=== PATIENT | male | born 2005 | race Two or more races ===

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

== ENCOUNTER 2025-03-12 14:15 | Emergency (ER) | payer MEDICAID ==
[~2025-03-12] VITALS: Ht 170.2 cm; Wt 81.0 kg
--- NOTE | 2025-03-12 15:36 | Physician Documentation ---
HPI ~ General Chief Complaint: Medication Request Stated Complaint: MED REQUEST Time Seen by MD: 14:41 Primary Medical Doctor: Marlee History of Present Illness HPI Comments Needs multi Rx for admission to program. Known PmHx IDDM. Recently relocated from [place] to [facility]. No polydipsia, polyphagia or polyuria. Reports well-controlled when on his medications. Medication Reconciliation Allergies: Coded Allergies: No Known Allergies (Unverified , 04/18/14) Scheduled Divalproex Sodium (Depakote), 1,000 MG PO QAM, (Reported) Guanfacine HCl (Tenex), 1 TABLET PO QID, (Reported) Melatonin/Pyridoxine Hcl (B6) (Melatonin 5 Mg Tablet), 2 EACH PO HS, (Reported) Methylphenidate HCl (Concerta), 1 TABLET PO QAM, (Reported) Quetiapine Fumarate (Seroquel), 50 MG PO QAM, (Reported) Quetiapine Fumarate (Quetiapine Fumarate), 300 MG PO HS, (Reported) Quetiapine Fumarate (Seroquel), 2 TABLET PO DAILY AT 1630, (Reported) Past Medical History Past Medical History: Diabetes, *PSYCH*, Bipolar Past Surgical History: no surgical history Other Past Family History: NONE Alcohol Use: None Drug Use: none Lives with: Family Lives In: Home Review of Systems All Other Systems at this time: Reviewed and Negative ROS See HPI Physical Exam Physical Exam Vital Signs: RN Vital Signs have been reviewed: Yes, Temperature: 97.8, Source: Temporal, Heart Rate: 93, Respiratory Rate: 16, BP: 134/65, Pulse Oximetry: 96, Weight: 81.000 Oxygen Flow Rate: 0 General Appearance: alert, WD/WN, no apparent distress Pupils/EOM/Fundus: PERRLA Neck: non-tender Respiratory: no respiratory distress Chest: no accessory muscle use Extremities: normal inspection Neurologic: oriented x4 Motor / Sensory: no motor deficit Affect: appropriate Skin: warm/dry Progress Results/Orders Results/Orders Vital Signs 03/12/25 14:17 Temp 97.8 Pulse 93 Resp 16 B/P (MAP) 134/65 Pulse Ox 96 O2 Flow Rate 0 Medical Decision Making Additional information obtaine: other (Pharmacist) Findings 19-year-old male with a medication prescription refills. While in the emergency department we contacted his preferred pharmacy in [place] and had prescriptions aligned with pharmacy in [place]. Patient has a pending admission to his program and we will obtain his prescriptions for pharmacy with the next hour to. Safely discharged in the emergency department. Differential Dx:Considerations: Include: Adverse circumstances, Economic, Psychosocial, Medical services unavail., Medication refill, Medication non-compliance Departure Disposition: HOME / SELF CARE / HOMELESS Impression: Primary Impression: Prescription refill Additional Impression: Diabetes Qualified Codes: E10.69 - Type 1 diabetes mellitus with other specified complication Condition: Stable Discharge Instructions: Medicine Refill at the Emergency Department Additional Instructions: Please obtain your prescriptions and follow up with the Pharmacy for refills as needed. Referrals: NO PRIMARY CARE PROVIDER (PCP) Education Educated: Patient Educated regarding: diagnosis, treatment, prognosis, need for follow up Signature Scribe Signature: . Attestation: . PAZ BOND PAC Mar 12, 2025 15:36
[2025-03-12 15:52] VITALS: BP 145/87; PULSE 87; RESP 17; TEMP 97.8; O2SAT 98
== END 2025-03-12 15:54 | disposition home or self-care (01) ==
LOC: ER 14:16
DX: E11.9 Type 2 diabetes mellitus without complications (principal); F31.9 Bipolar disorder, unspecified; Z76.0 Encounter for issue of repeat prescription; Z79.4 Long term (current) use of insulin; Z79.899 Other long term (current) drug therapy
CPT/HCPCS: 99282

== ENCOUNTER 2025-03-24 13:54 | Emergency (ER) | payer MEDICAID ==
[~2025-03-24] VITALS: Ht 167.6 cm; Wt 79.3 kg
--- NOTE | 2025-03-24 14:33 | Physician Documentation ---
History of Present Illness ~ Chief Complaint: Cold, cough & congestion Stated Complaint: LOW 02 Time Seen by MD: 16:16 Primary Medical Doctor: Marlee Source: patient Mode of Arrival: POV Exam Limitations: no limitations HPI 19-year-old with history of type 2 diabetes coming in with chest congestion mild cough for 24 hours. Patient states his oxygen saturation as low and he is having a difficult time breathing. Patient takes metformin for type 2 diabetes. Patient also states that his blood sugar was in the 400s today. Medication Reconciliation Allergies: Coded Allergies: No Known Allergies (Unverified , 03/24/25) Scheduled Divalproex Sodium (Depakote), 1,000 MG PO QAM, (Reported) Guanfacine HCl (Tenex), 1 TABLET PO QID, (Reported) Melatonin/Pyridoxine Hcl (B6) (Melatonin 5 Mg Tablet), 2 EACH PO HS, (Reported) Methylphenidate HCl (Concerta), 1 TABLET PO QAM, (Reported) Quetiapine Fumarate (Seroquel), 50 MG PO QAM, (Reported) Quetiapine Fumarate (Quetiapine Fumarate), 300 MG PO HS, (Reported) Quetiapine Fumarate (Seroquel), 2 TABLET PO DAILY AT 1630, (Reported) Past Medical History Past Medical History: Diabetes, *PSYCH*, Bipolar Past Surgical History: no surgical history Other Past Family History: NONE Alcohol Use: None Drug Use: none Lives with: Family Lives In: Home Review of Systems All Other Systems at this time: Reviewed and Negative Respiratory: Reports: see HPI Physical Exam Vital Signs: RN Vital Signs have been reviewed: Yes, Temperature: 99.2, Source: Oral, Heart Rate: 128, Respiratory Rate: 18, BP: 140/77, Pulse Oximetry: 95, Weight: 79.300 Oxygen Flow Rate: 0 Physical Exam General: Alert, no apparent distress. HEENT: moist mucous membranes. Neck: Full range of motion. Respiratory: No respiratory distress speaking in full sentences clear to auscultation but diminished in the posterior bases Chest: No accessory muscle use. Cardiovascular: Appears well perfused Neurologic: Oriented x4. Psychiatric: Normal mood and affect. Skin: Normal color, warm and dry. No edema, no ecchymosis. Progress Results/Orders Results/Orders Orders - CIERRA VILLARREAL NP Azithromycin Tablet (Zithromax Tablet) (03/24/25 16:40) Vital Signs 03/24/25 03/24/25 14:08 16:20 Temp 99.2 Pulse 128 Resp 18 18 B/P (MAP) 140/77 Pulse Ox 95 O2 Flow Rate 0 Laboratory Tests Test 03/24/25 14:14 03/24/25 14:24 Glucometer 229 H White Blood Count 13.0 H Red Blood Count 5.22 Hemoglobin 15.1 Hematocrit 45.6 Mean Corpuscular Volume 87.4 Mean Corpuscular Hemoglobin 28.9 Mean Corpuscular Hemoglobin Concent 33.1 Red Cell Distribution Width 13.5 Platelet Count 348 Mean Platelet Volume 8.2 Neutrophils (%) (Auto) 73.8 Lymphocytes (%) (Auto) 13.1 L Monocytes (%) (Auto) 12.8 H Eosinophils (%) (Auto) 0 Basophils (%) (Auto) 0.3 Neutrophils # (Auto) 9.6 H Lymphocytes # (Auto) 1.7 Monocytes # (Auto) 1.7 H Eosinophils # (Auto) 0.0 Basophils # (Auto) 0.0 CBC Comment Sodium Level 138 Potassium Level 3.9 Chloride Level 101 Carbon Dioxide Level 27.7 Anion Gap 9 Blood Urea Nitrogen 10 Creatinine 0.91 Estimated GFR/1.73 m2 > 90 BUN/Creatinine Ratio 11.0 Glucose Level 242 H Calcium Level 9.4 Pro-B-Type Natriuretic Peptide < 30 Albumin 3.7 Chemistry Comments EKG/XRAY/CT/US/VASC/MRI Chest X-Ray : Additional Comments CHEST RADIOGRAPH INDICATION: CP TECHNIQUE: Single frontal view of the chest was obtained COMPARISON: None FINDINGS: Lines and Tubes: None Lungs: Right medial mid to lower lung zone patchy opacity. Pleura: No effusion. No pneumothorax. Cardiomediastinal contours: Unremarkable Bones: No acute osseous abnormality. IMPRESSION: Right medial mid to lower lung zone patchy opacity which may represent pneumonia in the right clinical setting. Medical Decision Making Additional information obtaine: N/A Findings X-ray due to patient's symptoms and subjective hypoxemia. Vital signs reassuring except for heart rate elevation. X-ray does show some consolidation potentially pneumonia. Patient also has uncontrolled type 2 diabetes. Patient will be ultimately discharged with antibiotics for pneumonia as well as a slight increase in his the follow up with primary care Differential Dx:Considerations: Include: Influenza, Pneumonia, Pnuemonitis, Sinusitis, URI, Other Departure Time of Disposition: 16:47 Disposition: 01 HOME / SELF CARE / HOMELESS Impression: Primary Impression: Pneumonia Additional Impression: Diabetes Condition: Stable Discharge Instructions: Upper Respiratory Infection, Adult Referrals: NO PRIMARY CARE PROVIDER (PCP) Prescriptions Guaifenesin (Guaifenesin) 400 Mg Tablet 1 TAB PO Q8H for cough for 5 Days, #15 TAB 0 Refills Prov: CIERRA VILLARREAL NP 03/24/25 Empagliflozin (Jardiance) 25 Mg Tablet 1 TAB PO DAILY for 30 Days, #30 TAB 5 Refills Prov: CIERRA VILLARREAL NP 03/24/25 Azithromycin (Zithromax) 250 Mg Tablet 1 TAB PO UD for 5 Days, #6 TAB 2 the first day followed by 1 for days 2-5 Prov: CIERRA VILLARREAL NP 03/24/25 Education Educated: Patient Educated regarding: diagnosis, treatment, need for follow up Signature Scribe Signature: No scribe Attestation: The note accurately reflects work and decisions made by me.Cierra ROJO 03/24/25 16:52 CIERRA VILLARREAL NP Mar 24, 2025 14:33
[2025-03-24 14:40] LABS: MEAN PLATELET VOLUME 8.2 FL (7.4-10.4); RED CELL DISTRIBUTION WIDTH 13.5 % (11.5-14.5)
--- NOTE | 2025-03-24 14:47 | ELECTROCARDIOGRAPH REPORT ---
[facility] Test Date: 2025-03-24 Test Time: 14:46:02 Pat Name: JEFFERY HOLLINGSWORTH Department: EMERGENCY ROOM Room: Gender: M [employer] Scientist: YASSINE : 2005 Requested By: NICOL DUPREE Order Number: [id number] Reading MD: Dr. Hakan Medina Measurements Intervals [place] Rate: 126 P: 56 UT: 135 QRS: 49 QRSD: 83 T: -4 QT: 277 QTc: 401 Interpretive Statements Sinus tachycardia Borderline T abnormalities, diffuse leads Baseline wander in lead(s) V1,V2,V3,V4,V5,V6 Electronically Signed On 03-25-2025 11:17:[address] Hakan Medina Please click the below link to view image of tracing.
--- NOTE | 2025-03-24 14:51 | RADIOLOGY REPORT ---
CHEST RADIOGRAPH INDICATION: CP TECHNIQUE: Single frontal view of the chest was obtained COMPARISON: None FINDINGS: Lines and Tubes: None Lungs: Right medial mid to lower lung zone patchy opacity. Pleura: No effusion. No pneumothorax. Cardiomediastinal contours: Unremarkable Bones: No acute osseous abnormality. IMPRESSION: Right medial mid to lower lung zone patchy opacity which may represent pneumonia in the right clinical setting.
[2025-03-24 15:03] LABS: CREATININE 0.91 MG/DL (0.60-1.10); PRO BRAIN NATRIURETIC PEPTIDE < 30 PG/ML (0-125); TOTAL CARBON DIOXIDE 27.7 MMOL/L (24-32); eCRCL 116 ML/MIN; eGFR > 90 ML/MIN
[2025-03-24] MEDS ORDERED: AZIT250T89 PO (16:51)
[2025-03-24] MEDS ORDERED: GUAI400T92 PO (16:51)
[2025-03-24] MEDS ORDERED: EMPA25TA PO (16:51)
[2025-03-24 17:10] VITALS: BP 131/81; PULSE 110; RESP 18; TEMP 99.2; O2SAT 94
[2025-03-26] MEDS ORDERED: DOXY100T2 PO (13:52)
[2025-03-26] MEDS ORDERED: EMPA10TA PO (13:52)
[2025-03-26] MEDS ORDERED: METF-438 PO (13:52)
[2025-03-26] MEDS ORDERED: AMOX-CLAV (13:52)
[2025-03-26] MEDS ORDERED: GLYB5TAB7 PO (13:52)
[2025-03-26] MEDS ORDERED: [UNRECOGNIZED DRUG - CODE] SUBCUT (15:09)
== END 2025-03-24 17:00 | disposition home or self-care (01) ==
LOC: ER 13:54
DX: J18.9 Pneumonia, unspecified organism (principal); E11.9 Type 2 diabetes mellitus without complications; F31.9 Bipolar disorder, unspecified; Z79.84 Long term (current) use of oral hypoglycemic drugs; Z79.899 Other long term (current) drug therapy
CPT/HCPCS: 36415; 71045; 80048; 82948; 83880; 85025; 93005; 99285